=== PATIENT | male | born 1985 | race Hispanic/Latino ===

== ENCOUNTER 2017-07-26 23:30 | Emergency (ER) | payer OTHER ==
[2017-07-26 23:41] VITALS: BP 144/93; PULSE 108; TEMP 98.3
[2017-07-27 00:02] VITALS: RESP 14; O2SAT 97
[2017-07-27] MEDS ORDERED: Albuterol-Ipratrop 3 mg / 0.5 (3 ml) UD INH STA (00:18)
--- NOTE | 2017-07-27 00:26 | ED PDOC ---
HPI: SOB/CHF/COPD Chief Complaint (Provider): Asthma Exacerbation History Per: Patient History/Exam Limitations: no limitations Onset/Duration Of Symptoms: Hrs Current Symptoms Are (Timing): Still Present Initiating Event: Out Of Medications, Exposure To Smoke (dogs and dusts ) Quality: Tightness Current Respiratory Medications: None Associated Symptoms: Dizziness (mild). denies: Fever, Sweating, Chest Pain, Bloody Cough, Productive Cough (dry cough), Leg/Calf Pain Additional History Per: Patient - Risk Factors PE Risk Factors: Neg: Extremity Immobilization/Fx, Decreased Mobilty /Activity, Recent Major Surgery, Recent Hospitalization, Active Cancer, Previous DVT, Previous PE, CHF <Titi Moyer - Last Filed: 07/27/17 03:02> <Santino Hermosillo - Last Filed: 07/27/17 06:13> Time Seen by Provider: 07/26/17 23:45 Chief Complaint (Nursing): Shortness Of Breath Additional Complaint(s): This is 31 y/o male with PMH of mild intermittent asthma comes to the ED c/o wheezing, coughing, chest tightness and heavy breathing which started in afternoon. As per patient, he is allergic to dust, dogs and cats, Admits he was exposed to dogs and dust in new apartment today which caused his symptoms. Patient admits mild palpitations, dizziness and headache but denies any weakness , blurred vision, numbness, tingling or chest/ abdominal pain. (Titi Moyer) Supervising Attending Note - Attestation: I have personally seen and examined this patient.: Yes I have fully participated in the care of the patient.: Yes I have reviewed all pertinent clinical information, including history, physical exam and plan: Yes <Santino Hermosillo - Last Filed: 07/27/17 06:13> Past Medical History Reviewed: Vital Signs - Medical History PMH: Asthma - Surgical History Surgical History: No Surg Hx - Family History Family History: States: Unknown Family Hx - Living Arrangements Living Arrangements: With Friends/Others - Social History Current smoker - smoking cessation education provided: No Ex-Smoker (has not smoked in the last 12 months): No Alcohol: Occasional Drugs: Denies <Titi Moyer - Last Filed: 07/27/17 03:02> <Santino Hermosillo - Last Filed: 07/27/17 06:13> Vital Signs: Last Vital Signs Temp 98.3 F 07/26/17 23:38 Pulse 108 H 07/26/17 23:38 Resp 14 07/26/17 23:58 BP 144/93 H 07/26/17 23:38 Pulse Ox 97 07/27/17 03:03 - Home Medications Home Medications: Ambulatory Orders Medication Instructions Recorded Ibuprofen 600 mg PO Q6H PRN #15 tab 06/12/15 Oxycodone HCl/Acetaminophen 1 tab PO Q6 PRN #15 tab 06/12/15 [Percocet 325 mg-5 mg] Albuterol HFA [Ventolin HFA 90 2 puff IH [id number] #1 puff 07/27/17 mcg/actuation (8 g)] - Allergies Allergies/Adverse Reactions: Allergies Allergy/AdvReac Type Severity Reaction Status Date / Time Sulfa (Sulfonamide Allergy RASH Verified 07/26/17 23:47 Antibiotics) Curb-65 Severity Score - CURB-65 Severity Score Confusion: No Bun >19mg/dl (>7mmol/L): No Respiratory Rate greater than/equal to 30: No Systolic BP <90 or Diastolic BP less than/equal 60mmHg: No Age >64: No Curb-65 Score: 0 Percentage 30-day mortality: 0.6% <Titi Moyer - Last Filed: 07/27/17 03:02> Wells Criteria for PE - Wells Criteria for Pulmonary Embolism Clinical Signs and Symptoms of DVT: No P.E is #1 Diagnosis, or Equally Likely: No Heart Rate >100: Yes Immobilization at least 3 days;Surgery previous 4 weeks: No Previous, objectively diagnosed PE or DVT: No Hemoptysis: No Malignancy w/treatment within 6 months, or palliative: No Total Score: 1.5 <iTti Moyer - Last Filed: 07/27/17 03:02> Review of Systems Constitutional: Negative for: Fever, Weakness, Weight loss Eyes: Negative for: Vision Change, Conjunctivae Inflammation ENT: Negative for: Ear Pain, Nose Pain Cardiovascular: Positive for: Palpitations (chest tightness ). Negative for: Orthopnea, Paroxysmal Noc. Dyspnea, Edema Respiratory: Positive for: Cough, Wheezing, Other (heavy breathing ) Gastrointestinal: Positive for: Nausea. Negative for: Vomiting, Abdominal Pain , Diarrhea Genitourinary Male: Negative for: Dysuria, Frequency Musculoskeletal: Negative for: Neck Pain, Shoulder Pain Skin: Negative for: Rash Neurological: Negative for: Weakness, Numbness, Change in Speech <Titi Moyer - Last Filed: 07/27/17 03:02> Physical Exam - Reviewed Nursing Documentation Reviewed: Yes Vital Signs Reviewed: Yes - Physical Exam Appears: Positive for: No Acute Distress Head Exam: Positive for: ATRAUMATIC, NORMAL INSPECTION, NORMOCEPHALIC Skin: Positive for: Normal Color, Warm Eye Exam: Positive for: Normal appearance, EOMI, PERRL ENT: Positive for: Normal ENT Inspection Neck: Positive for: Normal, Painless ROM Cardiovascular/Chest: Positive for: Regular Rate, Rhythm, Chest Non Tender. Negative for: Edema, JVD Respiratory: Positive for: Normal Breath Sounds, Other (transmitted bronchial breath sounds). Negative for: Accessory Muscle Use, Crackles, Rales, Rhonchi, Wheezing Gastrointestinal/Abdominal: Positive for: Normal Exam, Soft Back: Positive for: Normal Inspection Extremity: Negative for: Tenderness, Pedal Edema, Calf Tenderness Neurologic/Psych: Positive for: Alert, jewel inspector II-XII, Oriented. Negative for: Motor/Sensory Deficits <Titi Moyer - Last Filed: 07/27/17 03:02> - ECG O2 Sat by Pulse Oximetry: 97 - Progress Re-evaluation Time: 00:51 Condition: Improved <Titi Moyer - Last Filed: 07/27/17 03:02> <Santino Hermosillo - Last Filed: 07/27/17 06:13> - Progress ED Course And Treament: A/P: 31 y/o male with PMH of mild intermittent asthma comes to the ED for Asthma exacerbation. - EKG - CXR - Albuterol/Ipra treatment - Re-evaluation Case Discussed with Dr. Hermosillo CXR: wnl (Titi Moyer) Disposition - Disposition Disposition Time: 01:00 <Titi Moyer - Last Filed: 07/27/17 03:02> <Santino Hermosillo - Last Filed: 07/27/17 06:13> - Clinical Impression Clinical Impression: Asthma - Disposition Referrals: [facility] [Outside] Condition: STABLE Prescriptions: Albuterol HFA [Ventolin HFA 90 mcg/actuation (8 g)] 2 puff IH [id number] #1 puff Instructions: Asthma (GEN), Bronchospasm (ED) Forms: [employer] ([place]ijani)
[2017-07-27] MEDS ORDERED: Albuterol-Ipratrop 3 mg / 0.5 (3 ml) UD ONE (00:37)
--- NOTE | 2017-07-27 10:21 | RAD ---
HISTORY: sob COMPARISON: 06/12/1950 TECHNIQUE: Chest PA and lateral FINDINGS: LUNGS: No active pulmonary disease. PLEURA: No significant pleural effusion identified. No pneumothorax apparent. CARDIOVASCULAR: Normal. OSSEOUS STRUCTURES: No significant abnormalities. VISUALIZED UPPER ABDOMEN: Normal. OTHER FINDINGS: None. IMPRESSION: No active disease.
--- NOTE | 2017-07-27 11:58 | CARD ---
APPROVED REPORT EKG Measurement Heart [id number] <Conclusion> Sinus tachycardia Nonspecific T wave abnormality Abnormal ECG
== END 2017-07-27 01:09 | disposition home or self-care (01) ==
LOC: H.ER 23:30
DX: J45.21 Mild intermittent asthma with (acute) exacerbation (principal)